=== PATIENT | female | born 1940 | race Caucasian/White ===

== ENCOUNTER → 2023-07-10 15:21 | Outpatient (REF) | payer OTHER, SELFPAY | LOC: MRI 3T 15:21 | PROVIDERS: ATTENDING PHYSICIAN Orthopaedic Surgery | DX: M54.16 Radiculopathy, lumbar region (principal) | CPT/HCPCS: 72148 ==

== ENCOUNTER → 2024-07-23 12:58 | Outpatient (REF) | payer OTHER, SELFPAY | LOC: HWRAD 12:58 | PROVIDERS: ATTENDING PHYSICIAN Orthopaedic Surgery Hand Surgery; FAMILY PHYSICIAN Nurse Practitioner Family | DX: M19.012 Primary osteoarthritis, left shoulder (principal) | CPT/HCPCS: 73200 ==

== ENCOUNTER 2024-08-13 06:11 | Day surgery (SDC) | payer OTHER, SELFPAY ==
[2024-07-24 11:46] LABS: Hematocrit 38.3 % (37.0-47.0); Hemoglobin 12.7 g/dL (12.0-16.0); Mean Corp Hgb Conc. 33.2 g/dL (33.0-37.0); Mean Corpuscular Hgb 31.8 pg (27.0-31.0); Platelet Count 204 10^3/uL (130-400); Red Blood Cell Count 3.99 10^6/uL (4.20-5.40); Red Cell Dist. Width 13.2 % (11.5-14.5); White Blood Cell Count 4.3 10^3/uL (4.8-10.8)
[2024-07-24 12:10] LABS: ALT (SGPT) 18 U/L (0-35); AST (SGOT) 25 U/L (14-36); Albumin 4.2 g/dl (3.5-5.0); Alkaline Phosphatase 59 U/L (38-126); Blood Urea Nitrogen 12 mg/dl (7-17); Calcium 9.5 mg/dl (8.4-10.2); Carbon Dioxide 31 mmol/L (22-30); Chloride 104 mmol/L (98-107); Glucose 94 mg/dl (70-99); Potassium 4.3 mmol/L (3.5-5.1); Sodium 138 mmol/L (135-145); Total Bilirubin 0.7 mg/dl (0.2-1.3); Total Protein 6.4 g/dl (6.3-8.2); eGFR > 60.00
[2024-07-24 13:53] LABS: Glycohemoglobin (HgbA1c) 5.3 % (4.0-5.6)
[2024-07-24 14:07] VITALS: BMI 31.5
[2024-07-24 15:18] VITALS: BMI 31.5
--- NOTE | 2024-07-25 15:25 | SLEEP.APNEA ---
Sleep Apnea Order
- -
Patient screened as High Risk for Sleep Apnea on Stop Bang Questionnaire. Patient referred to [facility] for Pre-Study.

Name: CASSIE SABILLON
: 1940
Home Phone: Use [email or web address] instead
Cell Phone: [f_Reg Other Phone]
Work Phone:
Address: [address] [place] [address]
City: [place]
State: [place]
Zip: [f_[facility] Zip]
Family Physician: ANNABELLE Suarez
Height 5 ft 4 in
Actual Weight 83.3 kg
Body Mass Index (BMI) 31.5
Ordering Provider: Tri Corona PA-C
--- NOTE | 2024-07-30 15:10 | VNURNOTE ---
Rec'ed update from SIMIN Deleon that patient's sisters will be helping her post-op shoulder surgery 08/13. No indication for VN at this time.
[2024-08-13] VITALS (20 sets, daily range): BP systolic 117–174; BP diastolic 52–92
[2024-08-13] MEDS: TYLENOL 1000 MG PO (11:23)
[2024-08-13] MEDS: CELEBREX 200 MG PO (11:23)
[2024-08-13] MEDS: NORMOSOL-R/PLASMALYTE-A 1000 IV (11:24)
--- NOTE | 2024-08-13 15:15 | W.DS.TRANS ---
DC Summary - [employer]
-
Discharge Instructions:
Sleep Apnea Risk Low
Discharge Diagnosis/Procedures L TSA 08/13/24
Diet As tolerated
Activity No strenuous activity
Driving Restrictions No driving
Instructions:
Stand-Alone Forms: SDS Total Shoulder D/C Inst.
Changes to Home Medications: Yes
Discharge Medications:
DC Medications w/original date entered in [employer]
bupropion HCl 150 mg 24 hr tablet, extended release 150 mg PO HS Mental Health/Anxiety 03/21/21
losartan 100 mg tablet 100 mg PO HS Blood pressure 06/08/22
magnesium glycinate 275 mg PO DAILY 07/21/24
meloxicam 15 mg tablet 15 mg PO DAILY PRN pain 07/21/24
zyynkaqb-iehd-uzrllkr gluconate 9 mg iron/15 mL (15 mL) oral liquid (Liquid Multivitamin) 15 ml PO DAILY 07/21/24
mupirocin 2 % topical ointment 1 applic intranasal BID #1 tube 07/24/24
Advil Cream 1 dose topical DAILYPRN PRN pain ##0 08/13/24
Saccharomyces boulardii 250 mg capsule (Florastor) 250 mg PO BID #1 cap 08/13/24
acetaminophen 500 mg tablet (Tylenol Extra Strength) 1,000 mg (2 x 500 mg) PO QID #0 tabs 08/13/24
aspirin 325 mg tablet 325 mg PO DAILY blood clot prevention #1 tab 08/13/24
dexamethasone 4 mg tablet 4 mg PO BID inflammation #6 tabs 08/13/24
docusate sodium 100 mg capsule (Colace) 100 mg PO BID stool softner #1 cap 08/13/24
doxycycline hyclate 100 mg capsule 100 mg PO BID infection prevention #10 caps 08/13/24
magnesium hydroxide 400 mg/5 mL oral suspension (Milk of Magnesia) 30 ml PO HS PRN Constipation #1 mL 08/13/24
ondansetron 4 mg disintegrating tablet 4 mg PO Q6H PRN n/v #20 tabs 08/13/24
oxycodone 5 mg tablet 5 mg PO Q6H PRN 1 tab moderate pain, 2 tabs severe pain #30 tabs 08/13/24
sennosides 8.6 mg tablet (Senokot) 17.2 mg (2 x 8.6 mg) PO BID laxative #2 tabs 08/13/24
Home Medication Changes
Saccharomyces boulardii 250 mg capsule (Florastor) 250 mg PO BID #1 cap 08/13/24
acetaminophen 500 mg tablet (Tylenol Extra Strength) 1,000 mg (2 x 500 mg) PO QID #0 tabs 08/13/24
aspirin 325 mg tablet 325 mg PO DAILY blood clot prevention #1 tab 08/13/24
dexamethasone 4 mg tablet 4 mg PO BID inflammation #6 tabs 08/13/24
docusate sodium 100 mg capsule (Colace) 100 mg PO BID stool softner #1 cap 08/13/24
doxycycline hyclate 100 mg capsule 100 mg PO BID infection prevention #10 caps 08/13/24
magnesium hydroxide 400 mg/5 mL oral suspension (Milk of Magnesia) 30 ml PO HS PRN Constipation #1 mL 08/13/24
ondansetron 4 mg disintegrating tablet 4 mg PO Q6H PRN n/v #20 tabs 08/13/24
oxycodone 5 mg tablet 5 mg PO Q6H PRN 1 tab moderate pain, 2 tabs severe pain #30 tabs 08/13/24
sennosides 8.6 mg tablet (Senokot) 17.2 mg (2 x 8.6 mg) PO BID laxative #2 tabs 08/13/24
Pending Results: No
[2024-08-13] MEDS: TYLENOL 650 MG PO ×2 (18:00→20:43)
[2024-08-13] MEDS: ASPIRIN 325 MG PO (19:10)
[2024-08-13] MEDS: VENTOLIN NEBULES 2.5 MG INH (19:55)
[2024-08-13] MEDS: COLACE 100 MG PO (20:44)
[2024-08-13] MEDS: ANCEF 5 IV (20:44)
[2024-08-13] MEDS: TORADOL 15 MG IV (20:44)
[2024-08-13] MEDS: SENOKOT 17.2 MG PO (20:44)
--- NOTE | 2024-08-13 21:24 | PTCARENOTE ---
20:15 pt rec'vd from PACU, sling in place to LUE, drsg with scant staining noted, NWB, pt denies pain, was able to ambulate to restroom to void without complications, vs WNL oriented to unit.
[2024-08-13] MEDS: WELLBUTRIN XL (24 hour extended release) 150 MG PO (21:47)
[2024-08-13] MEDS: NEURONTIN 300 MG PO (21:47)
[2024-08-13] MEDS: PEPCID 20 MG PO (21:47)
[2024-08-13] MEDS: BACTROBAN 2% OINTMENT 1 APPLIC NASAL (21:48)
[2024-08-13] MEDS: TYLENOL PO (23:45)
[2024-08-14 03:31] VITALS: BP 118/60
[2024-08-14] MEDS: ANCEF 5 IV (04:33)
[2024-08-14] MEDS: TYLENOL 650 MG PO ×2 (04:33→08:28)
[2024-08-14 07:36] VITALS: BP 124/61
[2024-08-14] MEDS: ASPIRIN 325 MG PO (08:28)
[2024-08-14] MEDS: SENOKOT 17.2 MG PO (08:28)
[2024-08-14] MEDS: COLACE 100 MG PO (08:29)
[2024-08-14] MEDS: TORADOL 15 MG IV (08:29)
[2024-08-14] MEDS: BACTROBAN 2% OINTMENT 1 APPLIC NASAL (08:29)
--- NOTE | 2024-08-14 09:39 | CM ---
Reviewed the chart notes and spoke with the patient at the bedside. The patient resides alone in an apartment, fourth floor, elevator access. The patient reports no DME/VN/SNF in the past. The patient confirmed her pharmacy of choice is [facility]. The patient anticipates going to outpatient therapy once medically cleared. Per patient, in two weeks. The patient's daughter will provide transportation home. CM continues to be available to patient/family and is monitoring medical plan
for needs at discharge.
Plan: Discharge to home when medically stable on outpatient therapy when appropriate.
--- NOTE | 2024-08-14 10:08 | W.PN.ORTHO ---
Today's Communication / Plan
-
d/c
Assessment
.
Distal Motor Intact: Yes
Dressing:
Clean, dry and intact.
Plan
.
Surgery / Date: [facility] 08/13/24
DVT Prophylaxis: Aspirin
Activity:
Out of bed.
PT/OT
Discharge Plan: Home
Subjective
.
.:
Patient resting comfortably.
Vital Signs and Labs
.
Vital Signs and Labs:
Lab Results
07/24/24 11:10
07/24/24 11:10
Temp Pulse Resp BP Pulse Ox
98.2 F 76 16 124/61 95
08/14/24 07:36 08/14/24 07:36 08/14/24 07:36 08/14/24 07:36 08/14/24 07:36
Non-invasive Hgb result: 13.7
Physical Exam
-
HEENT: No pallor, cyanosis, or jaundice. Throat clear.
NECK: Supple. No JVD.
RESPIRATORY: Lungs clear to auscultation.
CVS: S1, S2 normal. RRR.� No murmur, rub or gallop.
ABDOMEN: Soft, non-tender. No distension. BS+/normal.
EXTREMITIES: strength equal, no calf pain with palpation
TOOTH GRINDER: AOx3. No focal deficits. auto hiker grossly intact
[2024-08-14 11:14] VITALS: BP 126/57
[2024-08-14 12:48] VITALS: BP 128/53; PULSE 77; O2SAT 97
== END 2024-08-14 14:55 | disposition home or self-care (01) ==
LOC: SDS 06:11
PROVIDERS: ATTENDING PHYSICIAN Orthopaedic Surgery Hand Surgery; FAMILY PHYSICIAN Nurse Practitioner Family; OTHER PHYSICIAN Physician Assistant; REFERRING PHYSICIAN Internal Medicine
DX: M19.012 Primary osteoarthritis, left shoulder (principal)
CPT/HCPCS: 23472; 36415; 73020; 80053; 83036; 85027; 87070; 94640; 97166; 97535; C1713; C1776